=== PATIENT | female | born 1940 | race Caucasian/White ===

== ENCOUNTER 2021-12-26 13:00 | Emergency (ER) | payer OTHER, MEDICAID ==
[~2021-12-26] VITALS: Ht 160 cm; Wt 59.9 kg
[2021-12-26 13:48] VITALS: BP_SYST 125
--- NOTE | 2021-12-26 13:52 | NUR ---
Triaged pt and placed in waiting room until bed becomes available. Pt stable.
[2021-12-26 16:30] LABS: ANION GAP 14 (5-15); CALCIUM 8.7 mg/dL (8.4-11.0); CHLORIDE 103 mmol/L (98-107); CREATININE 2.66 mg/dL (0.55-1.30); GLUCOSE 148 mg/dL (70-99); POTASSIUM 4.1 mmol/L (3.5-5.1); SODIUM SERUM 138 mmol/L (136-145); UREA NITROGEN, BLOOD 47 mg/dL (8-21)
[2021-12-26 16:35] LABS: ALANINE AMINOTRANSFERASE 17 U/L (12-78); ALBUMIN 3.1 g/dL (3.4-4.8); ASPARTATE AMINOTRANSFERASE 39 U/L (10-37); LIPASE 285 U/L (73-393); TOTAL BILIRUBIN 2.9 mg/dL (0.0-1.0)
[2021-12-26 16:38] LABS: BASOPHILS # (AUTO) 0.1 K/uL (0.0-0.2); BASOPHILS % (AUTO) 0.7 % (0.0-2.0); EOSINOPHILS # (AUTO) 0.2 K/uL (0.0-0.4); HEMATOCRIT 36.3 % (36-48); LYMPHOCYTES # (AUTO) 0.9 K/uL (1.0-5.5); LYMPHOCYTES % (AUTO) 10.1 % (20.5-51.5); MEAN CORPUSCULAR VOLUME 87 fL (79.0-98.0); MONOCYTES # (AUTO) 0.4 K/uL (0.0-1.0); MONOCYTES % (AUTO) 3.9 % (1.7-9.3); NEUTROPHILS # (AUTO) 7.8 K/uL (1.8-7.7); NEUTROPHILS % (AUTO) 83.3 % (40.0-70.0); PLATELET COUNT (AUTO) 264 K/uL (130-430); RED BLOOD CELL COUNT(AUTO) 4.19 MIL/uL (4.2-6.2); RED CELL DISTRIBUTION WIDTH 18.1 % (9.0-15.0); WHITE BLOOD COUNT (AUTO) 9.3 K/uL (4.8-10.8)
--- NOTE | 2021-12-26 16:45 | NUR ---
BROUGHT BACK TO BED #6
[2021-12-26 17:16] LABS: INR 1.1 (0.8-1.2); PROTHROMBIN TIME 11.5 SECS (9.5-12.5)
[2021-12-26 18:21] LABS: BILIRUBIN,URINE NEGATIVE (NEGATIVE); BLOOD, URINE 1+ (NEGATIVE); CLARITY/URINE CLOUDY (CLEAR); COLOR,URINE YELLOW (YELLOW); GLUCOSE,URINE NEGATIVE (NEGATIVE); KETONES,URINE NEGATIVE (NEGATIVE); LEUKOCYTE ESTERASE ,URINE 2+ (NEGATIVE); NITRITE, URINE NEGATIVE (NEGATIVE); PH,URINE 5.5 (5.0-8.0); PROTEIN URINE 1+ (NEGATIVE)
--- NOTE | 2021-12-26 18:40 | NUR ---
First contact. [id number] is JAILYN Rodriguez.
--- NOTE | 2021-12-26 18:43 | NUR ---
Pt signed consent for paracentesis earlier. Pt is currently receiving paracentesis at this time. Daughter present in room during process. Pt tolerating well at this time.
[2021-12-26 19:11] LABS: BACTERIA,URINE FEW /HPF (None Seen); WBC,URINE 50-80 /HPF (0-3)
[2021-12-26 19:12] LABS: MUCUS,URINE None Seen /LPF (None Seen); URINE AMORPHOUS URATE 1+ /HPF (None Seen)
--- NOTE | 2021-12-26 19:28 | NUR ---
paracentesis completed 3 liters removed.
[2021-12-26 19:50] VITALS: BP_SYST 122
--- NOTE | 2021-12-26 19:50 | NUR ---
Patient given written and verbal discharge instructions and verbalizes understanding. ER MD discussed with patient the results and treatment provided. Patient in stable condition. ID arm band removed. NO RX given. Patient educated on pain management and to follow up with PMD. Pain Scale 0/10 Opportunity for questions provided and answered.
[2021-12-26 23:41] LABS: HEMOGLOBIN 11.7 g/dL (12.0-16.0); MEAN CORPUSCULAR HEMOGLOBIN 29 pg (27-31); MEAN CORPUSCULAR HGB CONC 32 % (32-36)
== END 2021-12-26 19:50 | disposition home or self-care (01) ==
LOC: SED 13:00
DX: R18.8 Other ascites (principal); Z98.890 Other specified postprocedural states; R10.9 Unspecified abdominal pain; R53.1 Weakness; I10 Essential (primary) hypertension; Z88.6 Allergy status to analgesic agent; Z79.899 Other long term (current) drug therapy
CPT/HCPCS: 36415; 49083; 71045; 76376; 80053; 81000; 82140; 83605; 83690; 85025; 85610-TC; 85730-TC; 87086; 99285

== ENCOUNTER 2022-01-08 12:25 | Emergency (ER) | payer OTHER, MEDICAID ==
[~2022-01-08] VITALS: Ht 154.9 cm; Wt 62.1 kg
[2022-01-08 12:30] VITALS: BP_SYST 12
[2022-01-08 14:41] LABS: ANION GAP 7 (5-15); CALCIUM 9.1 mg/dL (8.4-11.0); CHLORIDE 102 mmol/L (98-107); CREATININE 2.79 mg/dL (0.55-1.30); GLUCOSE 164 mg/dL (70-99); POTASSIUM 4.8 mmol/L (3.5-5.1); UREA NITROGEN, BLOOD 53 mg/dL (8-21)
[2022-01-08 14:47] LABS: ALANINE AMINOTRANSFERASE 32 U/L (12-78); ALBUMIN 2.3 g/dL (3.4-4.8); ASPARTATE AMINOTRANSFERASE 56 U/L (10-37); LIPASE 306 U/L (73-393); TOTAL BILIRUBIN 2.9 mg/dL (0.0-1.0)
[2022-01-08 15:06] LABS: INR 1.1 (0.8-1.2); PROTHROMBIN TIME 11.1 SECS (9.5-12.5)
[2022-01-08 15:19] LABS: BASOPHILS % (AUTO) 0.5 % (0.0-2.0); EOSINOPHILS # (AUTO) 0.1 K/uL (0.0-0.4); EOSINOPHILS % (AUTO) 0.8 % (0.0-4.0); HEMATOCRIT 38.4 % (36-48); LYMPHOCYTES # (AUTO) 0.8 K/uL (1.0-5.5); LYMPHOCYTES % (AUTO) 8.1 % (20.5-51.5); MEAN CORPUSCULAR VOLUME 89 fL (79.0-98.0); MONOCYTES # (AUTO) 0.5 K/uL (0.0-1.0); MONOCYTES % (AUTO) 4.9 % (1.7-9.3); NEUTROPHILS # (AUTO) 8.2 K/uL (1.8-7.7); NEUTROPHILS % (AUTO) 85.7 % (40.0-70.0); PLATELET COUNT (AUTO) 229 K/uL (130-430); RED CELL DISTRIBUTION WIDTH 18.6 % (9.0-15.0); WHITE BLOOD COUNT (AUTO) 9.6 K/uL (4.8-10.8)
[2022-01-08] MEDS ORDERED: ONDANSETRON 4 MG ODT TAB PO ONE (18:00)
[2022-01-08 21:42] VITALS: BP_SYST 128
== END 2022-01-08 21:41 | disposition home or self-care (01) ==
LOC: SED 12:25
DX: R18.8 Other ascites (principal); N28.9 Disorder of kidney and ureter, unspecified; E72.20 Disorder of urea cycle metabolism, unspecified; E80.7 Disorder of bilirubin metabolism, unspecified; I10 Essential (primary) hypertension; R10.84 Generalized abdominal pain; R53.1 Weakness; Z88.6 Allergy status to analgesic agent; Z79.899 Other long term (current) drug therapy
CPT/HCPCS: 49083; 99285; 71045; 80053; 82140; 83690; 85025; 85610; 36415; 93005; Q0162